=== PATIENT | female | born 1950 | race Caucasian/White ===

== ENCOUNTER → 2021-01-30 | Outpatient (CLI) | payer MEDICARE, OTHER ==
--- NOTE | 2021-01-30 09:42 | RAD ---
EXAM: Bilateral knees, standing view; right knee, 2 views. HISTORY: Pain. COMPARISON: 10/20/2020. FINDINGS: A standing view both knees and lateral and sunrise views of the right knee are obtained. Th ere are bilateral knee arthroplasties. There is a lateral fixation plate and screws traversing a heal ed distal right femoral metaphyseal periprosthetic fracture. There is no lucency surrounding the inst rumentation or prostheses to suggest loosening. There is a chronic corticated ossicle adjacent to the left medial femoral condyle. There are right knee joint loose bodies and there is enthesopathy along the right patella. There is trace right knee joint fluid. IMPRESSION: 1. Bilateral knee arthroplasties in expected position and evidence of prior internal fixation of a he aled distal right femoral metaphyseal periprosthetic fracture. 2. Right knee joint loose bodies. Electronically signed by: Gayatri Santos MD (01/30/2021 9:39 AM) [id number]
== END ==
LOC: RAD 09:10
PROVIDERS: ATTEND Physician Assistant
DX: M23.41 Loose body in knee, right knee (principal); M76.891 Other specified enthesopathies of right lower limb, excluding foot; Z96.651 Presence of right artificial knee joint
CPT/HCPCS: 73560; 73565